=== PATIENT | female | born 1995 | race Caucasian/White ===

== ENCOUNTER 2017-02-12 00:43 | Emergency (ER) | payer OTHER ==
[~2017-02-12] VITALS: Ht 154.9 cm; Wt 73.0 kg
[~2017-02-12 00:43] MED LIST: CEPH500C3 PO
[2017-02-12 00:48] VITALS: BP 117/82; PULSE 107; RESP 18; TEMP 97.5; O2SAT 100
[2017-02-12] MEDS ORDERED: KETOROLAC TROMETHAMINE 60 MG/2 ML (IM) VIAL IM ONE (01:15)
[2017-02-12] MEDS ORDERED: IBUP-232 PO (01:29)
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
== END 2017-02-12 01:56 | disposition home or self-care (01) ==
LOC: NEPC 00:43
DX: M54.5 Low back pain (principal); V49.49XA Driver injured in collision with other motor vehicles in traffic accident, initial encounter; Y93.89 Activity, other specified; Y92.410 Unspecified street and highway as the place of occurrence of the external cause; Y99.0 Civilian activity done for income or pay
CPT/HCPCS: 96372; 99283; J1885

== ENCOUNTER 2017-12-28 14:54 | Emergency (ER) | payer OTHER ==
[~2017-12-28] VITALS: Ht 157.5 cm; Wt 75.0 kg
[~2017-12-28 14:54] MED LIST changes: -CEPH500C3 PO; +IBUP-232 PO
[2017-12-28 15:00] VITALS: BP 131/73; PULSE 98; RESP 18; TEMP 99.5; O2SAT 98
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
[2017-12-28] MEDS ORDERED: ACETAMINOPHEN/HYDROcodone 325 MG/5 MG TAB PO ONE (15:15)
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
[2017-12-28] MEDS ORDERED: CYCL10TA PO (17:15)
== END 2017-12-28 18:58 | disposition home or self-care (01) ==
LOC: NEPD 14:54
DX: M25.511 Pain in right shoulder (principal); M25.551 Pain in right hip; V49.50XA Passenger injured in collision with unspecified motor vehicles in traffic accident, initial encounter
CPT/HCPCS: 71045; 72125; 73030; 73502; 84703; 99285